=== PATIENT | female | born 1985 | race Caucasian/White ===

== ENCOUNTER → 2017-07-22 | Outpatient (REF) | payer BC | LOC: M LAB REF 17:35 | PROVIDERS: ATTEND Nurse Practitioner Women's Health | DX: Z32.02 Encounter for pregnancy test, result negative (principal) ==

== ENCOUNTER → 2017-07-28 | Outpatient (CLI) | payer BC ==
--- NOTE | 2017-07-28 19:46 | REP ---
Clinical: Pelvic pain . Technique: Transabdominal pelvic ultrasound followed by transvaginal examination for better evaluation of the endometrium and adnexa with color Doppler evaluation of the ovaries. Findings: Bladder is unremarkable and measures 8.4 x 6.3 x 8.5 cm . Normal anteverted uterus measures 7.6 x 3.5 x 3.8 cm . The endometrial complex measures 9.2 mm thickness. No discrete uterine or endometrial abnormalities are appreciated. Small incidental endometrial cysts likely physiologic. Bilateral ovaries are normal in appearance and vascularity without evidence for torsion. Right ovary measures 2.1 x 1.6 x 3.4 cm ; R I = 0.52 . Left ovary measures 3.4 x 1.4 x 1.2 cm ; R I = 0.64 . No pelvic fluid or adnexal mass lesion . Impression: 1. Normal pelvic ultrasound Signed by Stephen Cardoso MD 07/28/2017 04:37 P
== END ==
LOC: M RAD 14:27
PROVIDERS: ATTEND Nurse Practitioner Women's Health
DX: R10.32 Left lower quadrant pain (principal)

== ENCOUNTER 2018-11-14 11:56 | Emergency (ER) | payer BC ==
[~2018-11-14] VITALS: Ht 165.1 cm; Wt 69.1 kg
[2018-11-14] MEDS ORDERED: MIRA3350 PO (12:06)
[2018-11-14] MEDS ORDERED: NS 1,000 ML IV ONE (12:45)
[2018-11-14 13:01] LABS: BASO % 0.8 % (0.0-1.0); EOS # 0.2 10^3/uL (0.0-0.50); EOS % 3.4 % (0.0-3.0); HEMOGLOBIN 14.1 g/dl (12.0-15.5); LYMPH # 1.4 10^3/uL (1.5-4.5); LYMPH % 28.7 % (24.0-44.0); MEAN CORPUSCULAR HEMOGLOBIN 32.6 pg (27.0-33.0); MEAN CORPUSCULAR HGB CONC 34.4 g/dl (32.0-36.5); MEAN CORPUSCULAR VOLUME 94.7 fl (80.0-96.0); MONO # 0.7 10^3/uL (0.0-0.8); MONO % 13.1 % (0.0-5.0); NEUTROPHILS # 2.7 10^3/uL (1.8-7.7); NEUTROPHILS % 53.8 % (36.0-66.0); PLATELET COUNT, AUTOMATED 190 10^3/uL (150-450); RED BLOOD COUNT 4.33 10^6/uL (4.00-5.40)
[2018-11-14 13:24] LABS: BLOOD UREA NITROGEN 16 MG/DL (7-18); CALCIUM LEVEL 8.8 MG/DL (8.5-10.1); CARBON DIOXIDE LEVEL 24 MEQ/L (21-32); CHLORIDE LEVEL 108 MEQ/L (98-107); CREATININE FOR GFR 0.69 MG/DL (0.55-1.30); GLOMERULAR FILTRATION RATE > 60.0 (>60); GLUCOSE, FASTING 83 MG/DL (70-100); POTASSIUM SERUM 3.6 MEQ/L (3.5-5.1); SODIUM LEVEL 136 MEQ/L (136-145)
[2018-11-14 13:32] LABS: ALBUMIN 4.1 GM/DL (3.2-5.2); ALT/SGPT 24 U/L (12-78); BILIRUBIN,DIRECT < 0.1 MG/DL (0.0-0.2); BILIRUBIN,TOTAL 0.4 MG/DL (0.2-1.0); LIPASE 150 U/L (73-393); TOTAL PROTEIN 7.2 GM/DL (6.4-8.2)
[2018-11-14] MEDS ORDERED: DICY10CA13 PO (14:23)
[2018-11-14] MEDS ORDERED: ONDA4TAB6 PO (14:23)
[2018-11-14 14:34] VITALS: BP 108/70
== END 2018-11-14 14:36 | disposition home or self-care (01) ==
LOC: M ED 11:56
DX: R19.7 Diarrhea, unspecified (principal); R10.84 Generalized abdominal pain; Z88.0 Allergy status to penicillin; Z88.1 Allergy status to other antibiotic agents; Z88.2 Allergy status to sulfonamides

== ENCOUNTER → 2018-11-16 | Outpatient (REF) | payer BC ==
[~2018-11-16] MED LIST: DICY10CA13 PO; MIRA3350 PO; ONDA4TAB6 PO
== END ==
LOC: M LAB REF 12:34
PROVIDERS: ATTEND Physician Assistant
DX: R19.7 Diarrhea, unspecified (principal)

== ENCOUNTER → 2023-01-29 | Outpatient (REF) | payer BC | LOC: M PLALAB 15:49 | PROVIDERS: ATTEND Nurse Practitioner Family | DX: Z12.4 Encounter for screening for malignant neoplasm of cervix (principal) ==

== ENCOUNTER → 2024-03-02 | Outpatient (REF) | payer BC ==
[~2024-03-02] MED LIST changes: +DICY-61 PO; -DICY10CA13 PO; +ONDA-282 PO; -ONDA4TAB6 PO
[2024-03-07 13:01] LABS: HPV APTIMA Not Detected (Not Detected)
== END ==
LOC: M SFHCWAGY 13:00
PROVIDERS: ATTEND Nurse Practitioner Family
DX: Z12.4 Encounter for screening for malignant neoplasm of cervix (principal); Z77.9 Other contact with and (suspected) exposures hazardous to health
CPT/HCPCS: 87624; G0123

== ENCOUNTER → 2024-06-05 | Outpatient (CLI) | payer BC | LOC: M WHC 09:39 | PROVIDERS: ATTEND Nurse Practitioner Family | DX: R10.2 Pelvic and perineal pain (principal) ==

== ENCOUNTER → 2025-04-11 | Outpatient (CLI) | payer BC | LOC: M WUC 09:11 | PROVIDERS: ATTEND Physician Assistant | DX: M25.512 Pain in left shoulder (principal) ==

== ENCOUNTER → 2025-05-10 | Outpatient (CLI) | payer BC | LOC: M PLAIMG 15:57 | PROVIDERS: ATTEND Physician Assistant Surgical | DX: S43.52XA Sprain of left acromioclavicular joint, initial encounter (principal); W18.30XA Fall on same level, unspecified, initial encounter; Y92.009 Unspecified place in unspecified non-institutional (private) residence as the place of occurrence of the external cause ==